=== PATIENT | male | born 1980 | race Caucasian/White ===

== ENCOUNTER → 2016-11-21 | Outpatient (CLI) | payer OTHER ==
--- NOTE | 2016-11-21 11:15 | NM ---
EXAMINATION TYPE: NM stress cardiolite complete DATE OF EXAM: 11/21/2016 COMPARISON: NONE HISTORY: Chest pain, family history heart disease TECHNIQUE: After the intravenous administration of 10.92 mCi Tc 99m Sestamibi - Rest images obtained 45 minutes post injection. The patient exercised using a MALKA protocol and 1 minute prior to peak exercise was injected with 28.5 mCi Tc 99m Sestamibi - Stress images obtained 30 minutes post inject ion. FINDINGS: Targeted heart rate was achieved during performance of the study. Review of stress and rest SPECT hillary ges demonstrates no distinct perfusion abnormality. Gated analysis shows normal wall motion with an estimated left ventricular ejection fraction of 57 %. No stress-induced ischemic changes evident. No prior infarct evident. IMPRESSION: 1. No stress-induced ischemic changes.
--- NOTE | 2016-11-21 19:31 | EST ---
EXERCISE STRESS Mr. Cooper is a 36 year old gentleman with history of hypertension, family history of ischemic heart disease and smoking, being evaluated for symptoms of chest pain. Baseline EKG showed sinus rhythm with normal MO interval and QRS duration. Blood pressure at rest is 126/99 with pulse rate of 68. The patient walked on Jim Protocol for 10 minutes and 30 seconds achieving maximum heart rate of 158 with blood pressure of 170/71. EKGs taken during and after exercise did not reveal any significant changes from baseline. FINAL IMPRESSION: 1. Negative stress test. 2. The patient did not experience any chest pain. 3. No arrhythmias detected. 4. Excellent exercise capacity. MMODL / IJN: [id number] /
== END ==
LOC: RADNMMAIN 07:36
PROVIDERS: ATTEND Family Medicine
DX: R07.9 Chest pain, unspecified (principal); Z82.49 Family history of ischemic heart disease and other diseases of the circulatory system
CPT/HCPCS: 93017; 78452; A9500

== ENCOUNTER 2021-02-25 18:38 | Emergency (ER) | payer MEDICAID, OTHER ==
[2021-02-25 18:47] VITALS: BP 156/88; TEMP 101.6
[2021-02-25] MEDS ORDERED: ACETAMINOPHEN TAB 500 MG TAB PO STA (18:57)
[2021-02-25] MEDS ORDERED: IBUPROFEN 800 MG TAB PO STA (18:57)
--- NOTE | 2021-02-25 19:30 | ED ---
General Adult HPI - General Chief complaint: Recheck/Abnormal Lab/Rx Stated complaint: Covid+/fever/cough Source: patient, RN notes reviewed, old records reviewed Mode of arrival: ambulatory Limitations: no limitations - History of Present Illness Initial comments: Patient was evaluated when he was placed in a room. Patient is a 40-year-old male with past medical history remarkable for hypertension who presents emergency Department after testing for COVID-19 today being positive. Patient states he has had symptoms since Thursday, and we are therefore and day 3. Is clingy fevers, headaches, joint pain, fatigue. I attempted to take Tylenol or Motrin. Patient is having minimal cough. No real increased work of breathing. No history of asthma. Patient was not vaccinated for COVID-19. He does have a known exposure last week of a family member. Otherwise denies any nausea, vomiting, diarrhea. Has no other acute complaints at this time. He presents emergency Department requesting monoclonal antibodies. - Related Data Home Medications Medication Instructions Recorded Confirmed Cetirizine HCl [Zyrtec] 10 mg PO HS 02/25/21 02/25/21 lisinopriL [Zestril] 20 mg PO HS 02/25/21 02/25/21 Previous Rx's Medication Instructions Recorded Acetaminophen Tab [Tylenol] 500 mg PO Q6H PRN 7 Days #28 tablet 02/25/21 Albuterol Inhaler [Ventolin Hfa 1 puff INHALATION RT-QID #8 gm 02/25/21 Inhaler] Allergies Allergy/AdvReac Type Severity Reaction Status Date / Time No Known Allergies Allergy Verified 02/25/21 20:19 Review of Systems ROS Statement: Those systems with pertinent positive or pertinent negative responses have been documented in the HPI. Review of Systems: CONST: Endorses fever EYES: Denies blurry vision ENT: Endorses nasal congestion. C/V: Denies Chest pain RESP: Denies shortness of breath GI: Denies abdominal pain : Denies dysuria SKIN: Denies rash. MSK: Denies joint pain. NEURO: Denies headache ROS Other: All systems not noted in ROS Statement are negative. Past Medical History Past Medical History: Hypertension History of Any Multi-Drug Resistant Organisms: None Reported Past Surgical History: Appendectomy, Cholecystectomy Past Psychological History: No Psychological Hx Reported Smoking Status: Never smoker Past Alcohol Use History: None Reported Past Drug Use History: None Reported General Exam - General Exam Comments Initial Comments: General: Patient is febrile but otherwise in no acute distress. HEAD: Normal with no signs of head trauma. EYES: PERRLA, EOMI, conjunctiva normal, no discharge. ENT: Hearing grossly intact, normal oropharynx. Moist mucous membranes. RESPIRATORY: Clear breath sounds bilaterally. No wheezes, rales, or rhonchi. No hypoxia. No increased work of breathing. C/V: Regular rate and rhythm. S1 and S2 auscultated, no edema, peripheral pulses 2+ and intact throughout ABD: Abd is soft, nontender, nondistended EXT: Normal range of motion, no obvious deformity SKIN: No rashes or lesions observed on exposed skin. NEURO: Alert and oriented 4. No focal deficits. Limitations: no limitations Course Vital Signs 02/25/21 02/25/21 18:45 21:58 Temperature 101.6 F H Pulse Rate 89 71 Respiratory 20 16 Rate Blood Pressure 156/88 O2 Sat by Pulse 98 99 Oximetry Medical Decision Making - Medical Decision Making Based on patient's presentation and physical exam, he has a confirmed COVID-19 infection. Patient does have paperwork from the outpatient urgent care where he obtained the testing earlier today. He otherwise is in no acute distress other than being febrile. I discussed with him on monoclonal antibodies and he did consent to receiving therapy. Nursing staff will help him email his positive COVID-19 testing paperwork to admit him. This way, it is in our system. Patient was in agreement this plan. Patient tolerated therapy well. He will be discharged home. I discussed quarantine with him. I also advised him to obtain a pulse oximeter. I will provide the patient with a prescription for Tylenol, albuterol. I instructed the patient to follow up with their PCP in the next 3 days. I explained that the patient should return to the emergency department if they experience any worsening symptoms. Strict return precautions were discussed with the patient. The patient expressed understanding of these instructions. I answered all questions that the patient had. The patient was discharged home in fair condition with their prescriptions and follow up information. Disposition Clinical Impression: COVID-19 virus infection, Febrile illness, acute Disposition: HOME SELF-CARE Condition: Fair Prescriptions: Acetaminophen Tab [Tylenol] 500 mg PO Q6H PRN 7 Days #28 tablet PRN Reason: Pain Albuterol Inhaler [Ventolin Hfa Inhaler] 1 puff INHALATION RT-QID #8 gm Is patient prescribed a controlled substance at d/c from ED?: No Referrals: Nonstaff,Physician [REFERRING] - 1-2 days Sherlyn Silva MD [STAFF PHYSICIAN] - 1-2 days
[2021-02-25] MEDS ORDERED: SOTROVIMAB (EUA) 500 MG in SODIUM CHLORIDE 0.9% 100 ML IVPB ONE (20:00)
[2021-02-25] MEDS ORDERED: SODIUM CHLORIDE 0.9% 50 ML IVPB ONE (20:30)
[2021-02-25 21:59] VITALS: PULSE 71; RESP 16
== END 2021-02-25 21:59 | disposition home or self-care (01) ==
LOC: EC 18:38
DX: U07.1 COVID-19 (principal); I10 Essential (primary) hypertension; Z79.899 Other long term (current) drug therapy
CPT/HCPCS: 99284; Q0247